=== PATIENT | female | born 1935 | race Caucasian/White ===

== ENCOUNTER 2024-03-30 12:05 | Emergency (ER) | payer MEDICARE, OTHER ==
[2024-03-30] MEDS ORDERED: HYDROmorphone 0.5 MG/0.5 ML SYRINGE ONE (12:48)
[2024-03-30] MEDS ORDERED: ACETAMINOPHEN TAB 500 MG TAB ONE (12:49)
[2024-03-30] MEDS ORDERED: IBUPROFEN 400 MG TAB ONE (12:49)
[2024-03-30] MEDS ORDERED: AMOXIC-POT CLAV 875-125MG 1 EACH TAB ONE (12:50)
[2024-03-30] MEDS ORDERED: DIPH,PERTUS(ACELL)TETVAC-LF 0.5 ML VIAL IM ONE (13:02)
[2024-03-30] MEDS ORDERED: LIDOCAINE 1%-EPI 1:100,000 20 ML VIAL ONE (13:03)
--- NOTE | 2024-05-23 12:45 | XR ---
Patient: Cheri Cabrera Ordering Physician: Unknown, Unknown ID: [id number] Phone, Pager: Phone: N/A Pager: N/A : 1935 Age/Gender: 88Y, F Primary Location: N/A Procedure: XR forearm RT Study Da te: 03/30/2024 2:06:13 PM EXAMINATION TYPE: XR forearm RT DATE OF EXAM: 04/15/2024 1:18 PM CLINICAL INDICATION: Dog bite COMPARISON: None TECHNIQUE: XR forearm RT; forearm was examined in AP and lateral projections. FINDINGS: No acute osseous pathology or joint dislocations are seen. No radiopaque foreign body. Sof t tissue swelling/injury along the radial aspect of the forearm. IMPRESSION: Soft tissue swelling without evidence of acute fracture. No radiopaque foreign bodies.
== END 2024-03-30 16:00 | disposition home or self-care (01) ==
LOC: EC 12:05
CPT/HCPCS: 12001; 90471; 90715; 96372; 99282